=== PATIENT | female | born 1970 | race Two or more races ===

== ENCOUNTER 2023-09-05 14:34 | Emergency (ER) | payer MEDICAID ==
[~2023-09-05] VITALS: Ht 172.7 cm; Wt 90.9 kg
[2023-09-05 14:50] VITALS: BP 138/79; PULSE 87; RESP 14; O2SAT 99
== END 2023-09-05 17:09 | disposition left against medical advice (07) ==
LOC: EDBD 14:34 → ER 14:34 → EDUNIT# 14:34 → ER 17:09
DX: R05.9 Cough, unspecified (principal); R19.7 Diarrhea, unspecified; Z53.21 Procedure and treatment not carried out due to patient leaving prior to being seen by health care provider
CPT/HCPCS: 71045